=== PATIENT | female | born 1975 | race African-American/Black ===

== ENCOUNTER 2023-03-26 18:05 | Inpatient (IN) | payer OTHER ==
[2023-03-26 21:50] VITALS: BMI 25.7
[2023-03-27] MEDS ORDERED: BISMUTH SUBSALICYLATE 262 MG/15 ML BTL PO PRN (09:02)
[2023-03-27] MEDS ORDERED: ACETAMINOPHEN 325 MG TABLET (FP) PO PRN (09:02)
[2023-03-27] MEDS ORDERED: POLYETHYLENE GLYCOL (HEALTHYLAX) 3350 17 GM PACKET PO PRN (09:02)
[2023-03-27] MEDS ORDERED: hydrOXYzine PAMOATE 25 MG CAPSULE (FP) PO PRN (09:02)
[2023-03-27] MEDS ORDERED: IBUPROFEN 400 MG TABLET (FP) PO PRN (09:02)
[2023-03-27] MEDS ORDERED: NALOXONE HCL (KLOXXADO) 8 MG SPRAY NS PRN (09:02)
[2023-03-27] MEDS ORDERED: guaiFENesin 600 MG TABLET.ER (FP) PO PRN (09:02)
[2023-03-27] MEDS ORDERED: LOPERAMIDE HCL 2 MG CAPSULE PO PRN (09:02)
[2023-03-27] MEDS ORDERED: MAGNESIUM HYDROX 2400MG/30ML ORAL SUSPENSION 30 ML CUP PO PRN (09:02)
[2023-03-27] MEDS ORDERED: DICYCLOMINE HCL 10 MG CAPSULE PO PRN (09:02)
[2023-03-27] MEDS ORDERED: IBUPROFEN 600 MG TABLET (FP) PO PRN (09:02)
[2023-03-27] MEDS ORDERED: MAG HYDROX/AL HYDROX/SIMETH 30 ML UNIT-DOSE CUP PO PRN (09:02)
[2023-03-27] MEDS ORDERED: ONDANSETRON *ODT* 4 MG TABLET SL PRN (09:02)
[2023-03-27] MEDS ORDERED: METHOCARBAMOL 500 MG TABLET PO PRN (09:02)
[2023-03-27] MEDS ORDERED: BENZOCAINE/MENTHOL (CHLORASEPTIC ) LOZENGE MM PRN (09:02)
[2023-03-27] MEDS ORDERED: NALOXONE HCL 0.4 MG/ML VIAL IM PRN (09:02)
[2023-03-27] MEDS ORDERED: BENZONATATE 200 MG CAPSULE PO PRN (09:02)
[2023-03-27] MEDS ORDERED: cloNIDine HCL 0.1 MG TABLET PO PRN (11:17)
[2023-03-27] MEDS ORDERED: methaDONE HCL 10 MG TABLET (FOR DETOX USE ONLY) PO ONE ×2 (11:17→12:38)
[2023-03-27] MEDS: PRENATAL VITAMINS W/ FOLIC ACID TABLET (FP) PO SCH (11:34)
[2023-03-27] MEDS: MELATONIN 5 MG TABLETS PO SCH (22:50)
[2023-03-27] MEDS: THIAMINE HCL 100 MG TABLET (FP) PO SCH (22:50)
[2023-03-28] MEDS: PRENATAL VITAMINS W/ FOLIC ACID TABLET (FP) PO SCH (09:49)
[2023-03-28] MEDS: MELATONIN 5 MG TABLETS PO SCH (22:55)
[2023-03-28] MEDS: THIAMINE HCL 100 MG TABLET (FP) PO SCH (22:55)
[2023-03-29] MEDS ORDERED: methaDONE HCL 10 MG TABLET (FOR DETOX USE ONLY) PO ONE (10:00)
[2023-03-29] MEDS: PRENATAL VITAMINS W/ FOLIC ACID TABLET (FP) PO SCH (10:53)
[2023-03-29 11:20] LABS: HEMATOCRIT 36.5 % (32.4-45.2); HEMOGLOBIN 11.4 GM/dL (10.7-15.3); MCH 25.3 pg (25.7-33.7); MCHC 31.1 g/dl (32.0-36.0); MEAN CELL VOLUME 81.3 fl (80-96); MEAN PLT VOLUME 7.9 fl (7.5-11.1); PLATELET COUNT 382 10^3/uL (134-434); RBC 4.49 M/mm3 (3.60-5.2)
[2023-03-29 12:09] LABS: BLOOD UREA NITROGEN 5.9 mg/dL (7-18); CALCIUM 8.9 mg/dL (8.5-10.1)
[2023-03-29 12:13] LABS: CREATININE 0.7 mg/dL (0.55-1.3)
[2023-03-29 12:14] LABS: BILIRUBIN,TOTAL 0.5 mg/dL (0.2-1); TOT PROT 6.4 g/dl (6.4-8.2)
[2023-03-29] MEDS: MELATONIN 5 MG TABLETS PO SCH (22:55)
[2023-03-29] MEDS: THIAMINE HCL 100 MG TABLET (FP) PO SCH (22:56)
[2023-03-30] MEDS: PRENATAL VITAMINS W/ FOLIC ACID TABLET (FP) PO SCH (09:22)
[2023-03-30] MEDS: MELATONIN 5 MG TABLETS PO SCH (22:53)
[2023-03-30] MEDS: THIAMINE HCL 100 MG TABLET (FP) PO SCH (22:53)
[2023-03-31 09:35] VITALS: BP 133/72; PULSE 64; RESP 16; TEMP 95.5
[2023-03-31] MEDS: PRENATAL VITAMINS W/ FOLIC ACID TABLET (FP) PO SCH (09:39)
[2023-03-31] MEDS ORDERED: methaDONE HCL 10 MG TABLET (FOR DETOX USE ONLY) PO ONE (10:00)
== END 2023-03-31 10:17 | disposition home or self-care (01) | DRG 773 ==
LOC: YASAS 18:05 → Y3N 03-27 11:12
PROVIDERS: ADMIT Allergy & Immunology; ATTEND Surgery
PROC: HZ2ZZZZ Detoxification Services for Substance Abuse Treatment (ICD-10-PCS; principal; 2023-03-27)
DX: F11.23 Opioid dependence with withdrawal (principal); F14.10 Cocaine abuse, uncomplicated; F12.20 Cannabis dependence, uncomplicated; F17.210 Nicotine dependence, cigarettes, uncomplicated; S92.901D Unspecified fracture of right foot, subsequent encounter for fracture with routine healing; X58.XXXD Exposure to other specified factors, subsequent encounter; Z59.02 Unsheltered homelessness
CPT/HCPCS: 36415; 80053; 81025; 85027; 86780; 87635; 87811; 93005; 93010